=== PATIENT | female | born 1995 | race Caucasian/White ===

== ENCOUNTER 2018-09-17 16:36 | Inpatient (IN) ==
[2018-09-17] MEDS ORDERED: Naloxone 0.4 MG/ML INJ IVP PRN (16:43)
[2018-09-17] MEDS ORDERED: Ondansetron 4 MG/2 ML VIAL IVP PRN (17:20)
[2018-09-17] MEDS ORDERED: Ringers Solution, Lactated 1,000 ML ONE (18:03)
[2018-09-17] MEDS: cefOXitin 2,000 MG in 0.9 % Sodium Chloride Mini Bag 100 ML IVPB SCH (18:22)
--- NOTE | 2018-09-17 19:12 | OB/GYN History & Physical ---
Date of Encounter: 09/17/18 Time of Encounter: 19:01 Assessment and Plan (1) Pelvic inflammatory disease Current visit: Yes Status: Acute admitting for IV abx: cefoxitin 2g q6h and doxycycline 100mg po q12h until resolution of RUQ pain. Plan to transition to outpatient treatment once pain improved. (2) Smoking Current visit: Yes Status: Acute Encouraged cessation. offered nicotine supplement while inpatient (3) Tubo-ovarian abscess Current visit: No Status: Acute plan to recheck TOA when she follows up in the office after completing outpt abx course History of Present Illness Chief complaint: RUQ pain HPI: Ms. Nunez is a 23 year old G0 presented to [facility] ER today w/ 24 hrs of RUQ pain and one month of right pelvic pain. She was noted on CT scan today to have a hydrosalpinx/TOA on the right. She was stable for discharge from the ER for immediate follow up in the office this afternoon. She had a pelvic US that demonstrates a 4x3cm TOA on the right and an edematous left fallopian tube. She has ttp in RUQ. She reports subjective fevers but no documented fever. She has also noted 2 wks of foul smelling copious vaginal discharge. She is sexually active w/out condom use-3 yr monogamous relationship. She is also not using contraception. Her test is negative. She does not have an elevated WBC count or a fever here. She was given a dose of IV abx at the outside ER. She seems to think her pain is improving. She is not aware of her partner having an STD but would like full STD testing to be safe. She denies n/v. Past Med Surg Social Fam HX - Past Medical History Medical history: other Additional medical history: Restless leg syndome, Chonic Left knee pain Psychiatric history: depression - Past Surgical History Surgical History: no surgical history - Social History Smoking Status: Current every day smoker Smokeless Tobacco Status: No Alcohol use: occasionally Drug use: none Obstetrical History - Pregnancies : 0 Medications and Allergies Gabapentin [Neurontin] 600 mg PO TID 08/24/17 [History] Tramadol HCl [Ultram] 50 mg PO BID PRN 08/24/17 [History] Allergy/AdvReac Type Severity Reaction Status Date / Time pamabrom [From Midol] Allergy Rash Verified 07/20/18 08:17 aspirin AdvReac Gastrointestinal Verified 09/17/18 10:08 Upset ibuprofen AdvReac Nausea Verified 07/20/18 08:17 naproxen [From Aleve] AdvReac Nausea Verified 07/20/18 08:17 NSAIDS (Non-Steroidal AdvReac Gastrointestinal Verified 07/20/18 08:17 Anti-Inflamma Upset Review of System OB - Constitutional Constitutional ROS IM: as per HPI - Gastrointestinal Gastrointestinal: as per HPI, abdominal pain (RUQ), no constipation, no nausea, no vomiting - Genitourinary Genitourinary: as per HPI (reg menses, LMP 08/31/18), difficulty conceiving, dyspareunia Exam - Vital Signs Vital signs: Initial Vital Signs Resp 18 09/17/18 17:19 - Constitutional Constitutional: well developed, well nourished, no acute distress - Lungs Respiratory exam: CTAB - Cardiovascular Cardiovascular exam: RRR - Abdomen Abdomen: Present: bowel sounds normal. Absent: guarding noted (ttp in RUQ, no ttp in the lower abd) - Vulva Vulva: bilateral: normal - Vagina Vagina: Present: normal moisture, discharge - Cervix Cervix: Present: discharge (no CMT) - Uterus Uterus exam: Absent: tender - Adnexa Adnexa: bilateral: normal (nontender, do not appreciate a mass) Results All other labs normal. - VTE Reasons for not Prescribing Prophylaxis: Treatment not Indicated - Low risk for VTE
[2018-09-17] MEDS ORDERED: traMADol 50 MG TABLET PO PRN (20:10)
[2018-09-17] MEDS ORDERED: Gabapentin 300 MG CAPSULE PO PRN (20:10)
[2018-09-17] MEDS ORDERED: Nicotine 2 MG GUM BC PRN (21:16)
[2018-09-17] MEDS: Gabapentin 300 MG CAPSULE PO SCH (21:41)
[2018-09-17] MEDS: traMADol 50 MG TABLET PO PRN (21:41)
[2018-09-17] MEDS: Doxycycline 100 MG CAPSULE PO SCH (21:42)
[2018-09-18] MEDS: cefOXitin 2,000 MG in 0.9 % Sodium Chloride Mini Bag 100 ML IVPB SCH ×5 (00:16→18:33)
[2018-09-18] MEDS: traMADol 50 MG TABLET PO PRN ×4 (05:43→20:11)
--- NOTE | 2018-09-18 06:52 | OB/GYN Progress Note ---
Date of Encounter: 09/18/18 Time of Encounter: 06:50 - Assessment and Plan (1) Pelvic inflammatory disease Current Visit: Yes Status: Acute Cont cefoxitin 2g q6h and doxycycline 100mg po q12hr. Adding Flagyl 500mg IV BID until improvement in pain. Pos Chlamydia culture. Vaginosis panel pos for Gardnerella. Pt notified and plans to notify partner. Full STD panel pending. Repeating CBC. Starting IVF 80cc/hr. Currently on KVO rate. Plan to transition to outpatient treatment once pain improved. (2) Smoking Current Visit: Yes Status: Acute Encouraged cessation. offered nicotine supplement while inpatient. Pt declines patch but will use gum (3) Tubo-ovarian abscess Current Visit: No Status: Acute plan to recheck TOA when she follows up in the office after completing outpt abx course. Concerned RUQ pain is evolving Geronimo Wilfred Marcin syndrome. Subjective - Subjective Principal diagnosis: PID/TOA Interval history: 23yo G0 HD#2 inpt management of PID/TOA reports RUQ is more intense this morning. Still w/ subjective fevers, no documented fever. No n/v. She wants to go out to smoke. Patient reports: appetite normal Objective - Vital Signs Latest vital signs: Vital Signs Temp Pulse Resp BP Pulse Ox 09/18/18 05:45 98.1 F 97 16 106/67 96 09/18/18 00:20 98.9 F 112 16 110/67 96 09/17/18 19:59 98.6 F 108 14 111/71 97 09/17/18 17:37 98.6 F 109 16 117/76 09/17/18 17:19 18 Intake and Output 09/17/18 09/17/18 09/18/18 15:59 23:59 07:59 Intake Total 100 / 100 100 / 100 Output Total 300 / 300 Balance 100 / 100 -200 / -200 Intake: IV Fluids 100 / 100 100 / 100 Mefoxin 2,000 MG In 0.9 % 100 / 100 100 / 100 Sodium Chloride (Mini-Bag +) 100 ML @ 200 mls/hr IVPB Q6HR ALAN Rx#:[id number] Output: Urine 300 / 300 Other: # Urine Diapers 3 - I&O's I&O's: Intake & Output 09/15/18 09/16/18 09/17/1819 23:59 23:59 23:59 23:59 Intake Total 100 / 100 100 / 100 Output Total 300 / 300 Balance 100 / 100 -200 / -200 - Exam Lungs: bilateral: normal Chest: Normal S1, Normal S2 Extremities: Present: normal Abdomen: Present: soft, tenderness (in the RUQ and lower abdomen) - Labs Labs: Pos Chlamydia, Pos Gardnerella
[2018-09-18 07:04] LABS: Basophils # 0.1 K/mcL (0.0-0.2); Basophils % 0.6 %; Eosinophils # 0.2 K/mcL (0.0-0.6); Hematocrit 36.7 % (35.3-44.9); Hemoglobin 11.8 g/dL (11.5-15.4); Immature Granulocytes % 0.2 % (0-4); Lymphocytes # 5.1 K/mcL (0.6-4.6); Lymphocytes % 60.3 %; Mean Corpuscular HGB Conc 32.2 g/dL (31.6-35.5); Mean Corpuscular Hemoglobin 29.4 pg (28.0-33.3); Mean Corpuscular Volume 91.5 fL (83.0-100.0); Mean Platelet Volume 9.3 fL (9.4-12.4); Monocytes # 0.5 K/mcL (0.0-1.3); Monocytes % 6.4 %; Neutrophils # 2.6 K/mcL (1.6-8.9); Platelet Count 341 K/mcL (140-400); Red Blood Count 4.01 M/mcL (3.82-4.97); Red Cell Distribution Width 14.7 % (11.5-14.5); Segmented Neutrophils % 30.5 %; White Blood Count 8.5 K/mcL (4.3-11.1)
[2018-09-18 07:22] LABS: Platelet Estimate Normal (Normal); Reactive Lymphocytes Present (Not Present)
[2018-09-18] MEDS: Ringers Solution, Lactated 1,000 ML IVC SCH (08:37)
[2018-09-18] MEDS: Doxycycline 100 MG CAPSULE PO SCH ×2 (08:37→20:11)
[2018-09-18] MEDS: MetroNIDAZOLE 500 MG/100 ML 500 MG/100 ML BAG IVPB SCH ×2 (08:38→16:34)
[2018-09-18 12:32] LABS: HIV-1&2 Antibody & p24 Ag Nonreactive (Nonreactive); Hepatitis C Virus Antibody Nonreactive (Nonreactive)
[2018-09-18] MEDS: Gabapentin 300 MG CAPSULE PO SCH (20:11)
[2018-09-19] MEDS: cefOXitin 2,000 MG in 0.9 % Sodium Chloride Mini Bag 100 ML IVPB SCH ×3 (00:10→11:51)
[2018-09-19] MEDS: Ringers Solution, Lactated 1,000 ML IVC SCH (00:12)
[2018-09-19] MEDS: MetroNIDAZOLE 500 MG/100 ML 500 MG/100 ML BAG IVPB SCH ×2 (00:53→08:19)
[2018-09-19] MEDS: Doxycycline 100 MG CAPSULE PO SCH ×2 (08:18→20:21)
[2018-09-19] MEDS: traMADol 50 MG TABLET PO PRN ×3 (08:19→20:27)
--- NOTE | 2018-09-19 10:22 | OB/GYN Progress Note ---
Date of Encounter: 09/19/18 Time of Encounter: 10:14 - Assessment and Plan (1) Tubo-ovarian abscess Current Visit: Yes Status: Acute Continue by mouth doxycycline 100 mg twice a day. Transition metronidazole 500 mg every 8 hours IV to PO Metronidazole 250 mg every 8 Hours. Transition cefoxitin 2000 mg every 6 hours IV to PO Cephalexin 250 mg every 8 hours. Continue vital sign checks, monitoring for any signs of fever. Repeat CBC in AM, monitoring for any elevations in white blood cell count. (2) Pelvic inflammatory disease Current Visit: Yes Status: Acute Continue antibiotics as stated in plan for TOA. Repeat abdominal exam in the morning. (3) Diarrhea Current Visit: Yes Status: Acute Check a Hemoccult to r/o GI bleed Qualifiers: Diarrhea type: unspecified type Qualified Code(s): R19.7 - Diarrhea, unspecified Subjective - Subjective Principal diagnosis: Tubo-ovarial abscess Interval history: Patient reports right upper quadrant pain has increased since yesterday, currently rating the pain a 7 out of 10. She also reports nausea with decreased appetite, stating she was only able to eat a few bites of her breakfast this morning, as well as 1 episode of vomiting overnight. She also reports subjective fevers, stating she feels hot. In addition, she reports diarrhea with dark stools, however denies black stools, bloody stools, changes in urinary frequency, urgency, pain with urination. She reports ongoing vaginal discharge that is unchanged. Of note, the patient reports that the diarrhea began and sometimes pain. It has been watery throughout. Was not present yesterday, but returned today and was dark today. Has not been dark before today. Patient reports: voiding normally, appetite poor (Patient reports decreased appetite over the last day, reporting she was only able to take 2 or 3 bites of her breakfast this morning secondary to nausea), nauseated (Patient reports one episode of vomiting overnight) Objective - Vital Signs Latest vital signs: Vital Signs Temp Pulse Pulse Resp BP Pulse Ox 09/19/18 09:10 98 F 71 18 117/70 97 09/19/18 08:25 98 F 83 16 102/67 95 09/19/18 06:14 98.1 F 100/64 96 09/19/18 05:45 86 14 09/19/18 00:00 98.6 F 93 16 100/64 95 09/18/18 19:25 98.2 F 120 14 110/73 95 Intake and Output 09/18/18 09/19/18 09/19/18 23:59 07:59 15:59 Intake Total 200 / 500 1200 / 1200 Output Total 200 / 900 300 / 300 Balance 0 / -400 900 / 900 Intake: IV Fluids 200 / 500 1200 / 1200 Lactated Ringers 1,000 ML @ 80 1000 / 1000 mls/hr IVC .[id number] ALAN Rx#: [id number] Flagyl Premix 500 MG/100 ML 500 100 / 200 100 / 100 mg In 100 ml @ 100 mls/hr IVPB Q8HR ALAN Rx#:[id number] Mefoxin 2,000 MG In 0.9 % 100 / 200 100 / 100 Sodium Chloride (Mini-Bag +) 100 ML @ 200 mls/hr IVPB Q6HR ALAN Rx#:[id number] Output: Urine 200 / 900 300 / 300 Other: Weight 55.6 kg Patient Weight 09/19/18 23:59 Weight 55.6 kg - I&O's I&O's: Intake & Output 09/16/18 09/17/18 09/18/18 09/19/18 23:59 23:59 23:59 23:59 Intake Total 100 / 100 500 / 500 1200 / 1200 Output Total 900 / 900 300 / 300 Balance 100 / 100 -400 / -400 900 / 900 Weight 55.7 kg 55.6 kg - Exam Lungs: bilateral: normal Chest: Normal S1, Normal S2 Extremities: Present: normal. Absent: tenderness, edema Abdomen: Present: normal appearance, tenderness (Right upper quadrant, with v oluntary guarding.), other (Voluntary guarding on exam) Comments: Of note, heart rate on exam was 100 bpm. - Labs Labs: Abnormal lab results RDW 14.7 % (11.5-14.5) H 09/18/18 06:33 MPV 9.3 fL (9.4-12.4) L 09/18/18 06:33 Lymphocytes # 5.1 K/mcL (0.6-4.6) H 09/18/18 06:33 Reactive Lymphocytes Present (Not Present) A 09/18/18 06:33 Consult Discharge Plan - Plan Referrals: NONE,PCP [Primary Care Provider] -
[2018-09-19] MEDS: Acetaminophen 325 MG TABLET PO PRN ×2 (12:04→18:21)
--- NOTE | 2018-09-19 14:57 | OB/GYN Progress Note ---
Date of Encounter: 09/19/18 Time of Encounter: 14:47 - Assessment and Plan (1) Tubo-ovarian abscess Current Visit: Yes Status: Acute 23yo G0 female who was admitted to [employer] [facility] with concern for TOA, and likely PID, HD#3 1. TOA - patient admitted from office on 09/17 - [place] [facility] [place] from outside hospital performed; both confirm likely 4cm TOA (R) - IV cepphalexin, doxy, flagyl; transitioned to PO ABx today - OK to continue po pain regimen with PO anti-emetics - OK to ADAT with patient - no leukocytosis appreciated - normal labs otherwise 2. Concern for PID - patient diagnosed with +Chlamydia - given IV dose on HD#1 - patient aware of risks of infertiliy with undiagnosed +CT - partner is to be treated for infection as well, both must remain abstinent from each other for at least 2 weeks DISPO: Transition to PO ABx today, pending patient status, will be OK to DC to home on HD#4 (tomorrow). MD SANAZ Subjective - Subjective Principal diagnosis: TOA/PID Interval history: 23yo G0 female, HD#3, admitted from the office for IV ABx with concern for TOA v. PID. Patient has been on triple IV ABx therapy since her admission without any objective fever, or WBC. She had issues with nausea and pain on HD#1, and again PM of HD#2 the patient had nausea. She was continued on IV hydration with IV ABx, and was given anti-emetics for vomiting. The patient has been able to tolerate PO since this morning, with vomiting and nausea. She is still taking pain medication which seems to be helping. Since the onset of her pain/discomfort also had an additional side effect of diarrhea. Reports increased dark brown/black stool. Denies odor. No longer with diarrhea, only ~8hr of diarrhea overnight. The patient was doing well this afternoon, still with discomfort along the RLQ and tender to palpation along the RUQ as well. Since the patient is tolerating PO solids/liquids this AM, OK to transition to PO this AM. Patient reports: appetite normal, voiding normally, pain well controlled, ambulating normally, nauseated Objective - Vital Signs Latest vital signs: Vital Signs Temp Pulse Pulse Resp BP Pulse Ox 09/19/18 11:50 98.3 F 88 16 100/65 09/19/18 09:10 98 F 71 18 117/70 97 09/19/18 08:25 98 F 83 16 102/67 95 09/19/18 06:14 98.1 F 100/64 96 09/19/18 05:45 86 14 09/19/18 00:00 98.6 F 93 16 100/64 95 09/18/18 19:25 98.2 F 120 14 110/73 95 Intake and Output 09/18/18 09/19/18 09/19/18 23:59 07:59 15:59 Intake Total 200 / 500 1300 / 2000 700 / 2000 Output Total 200 / 900 300 / 600 300 / 600 Balance 0 / -400 1000 / 1400 400 / 1400 Intake: IV Fluids 200 / 500 1300 / 1300 Lactated Ringers 1,000 ML @ 80 1000 / 1000 mls/hr IVC .[id number] ALAN Rx#: [id number] Flagyl Premix 500 MG/100 ML 500 100 / 200 100 / 100 mg In 100 ml @ 100 mls/hr IVPB Q8HR ALAN Rx#:[id number] Mefoxin 2,000 MG In 0.9 % 100 / 200 200 / 200 Sodium Chloride (Mini-Bag +) 100 ML @ 200 mls/hr IVPB Q6HR ALAN Rx#:[id number] Oral 700 / 700 Output: Urine 200 / 900 300 / 600 300 / 600 Other: Meal Breakfast Percent of Meal Consumed 25% Weight 55.6 kg Patient Weight 09/19/18 23:59 Weight 55.6 kg - I&O's I&O's: Intake & Output 09/16/18 09/17/18 09/18/18 09/19/18 23:59 23:59 23:59 23:59 Intake Total 100 / 100 500 / 500 2000 / 2000 Output Total 900 / 900 600 / 600 Balance 100 / 100 -400 / -400 1400 / 1400 Weight 55.7 kg 55.6 kg - Exam Extremities: Present: normal Abdomen: Present: soft, tenderness (RUQ pain) - Labs Labs: Abnormal lab results RDW 14.7 % (11.5-14.5) H 09/18/18 06:33 MPV 9.3 fL (9.4-12.4) L 09/18/18 06:33 Lymphocytes # 5.1 K/mcL (0.6-4.6) H 09/18/18 06:33 Reactive Lymphocytes Present (Not Present) A 09/18/18 06:33 Consult Discharge Plan - Plan Referrals: NONE,PCP [Primary Care Provider] -
[2018-09-19] MEDS: Gabapentin 300 MG CAPSULE PO SCH (20:21)
[2018-09-19] MEDS: Ondansetron ODT 4 MG TAB.RAPDIS SL PRN (20:31)
[2018-09-19] MEDS: metroNIDAZOLE 250 MG TABLET PO SCH (21:32)
[2018-09-19] MEDS: cephALEXin 250 MG CAPSULE PO SCH (21:32)
[2018-09-20] MEDS: traMADol 50 MG TABLET PO PRN ×4 (00:09→21:18)
[2018-09-20] MEDS: Acetaminophen 325 MG TABLET PO PRN (04:35)
[2018-09-20] MEDS: Doxycycline 100 MG CAPSULE PO SCH ×2 (08:33→21:15)
--- NOTE | 2018-09-20 09:59 | OB/GYN Progress Note ---
Date of Encounter: 09/20/18 Time of Encounter: 09:53 - Assessment and Plan (1) Tubo-ovarian abscess Current Visit: Yes Status: Acute 23-year-old female on hospital day #4 admitted for tubo-ovarian abscess and likely pelvic inflammatory disease. - TVUS performed [facility] [place] (office), CT from outside hospital performed; both confirm likely 4cm TOA (R) Continue by mouth doxycycline 100 mg twice a day. Continue PO Metronidazole 250 mg every 8 Hours. Continue PO Cephalexin 250 mg every 8 hours. Continue vital sign checks, monitoring for any signs of fever. Repeat CBC in AM, monitoring for any elevations in white blood cell count. Will add IV Toradol for continuing pain management (2) Pelvic inflammatory disease Current Visit: Yes Status: Acute Continue antibiotics as stated in plan for TOA. Possible discharge later today, pending Dr. Hilario's assessment. (3) Diarrhea Current Visit: Yes Status: Acute Check a Hemoccult to r/o GI bleed Qualifiers: Diarrhea type: unspecified type Qualified Code(s): R19.7 - Diarrhea, unspecified Subjective - Subjective Principal diagnosis: TOA Interval history: Patient reports no significant change from yesterday. She reports ongoing right upper quadrant pain, with slight worsening of suprapubic pain this morning. She reports ongoing vaginal discharge that is at times clear and at times white, denies any foul odor, denies any increase or decrease in quantity of the discharge. Still reports no nausea or vomiting, black or bloody stools, difficulty with urination, numbness or tingling, chest pain, shortness of breath. She does report some pain with deep breaths secondary to her abdominal pain. Denies any cough, hemoptysis. Denies fevers or chills. Patient reports: appetite normal, voiding normally, ambulating normally Objective - Vital Signs Latest vital signs: Vital Signs Temp Pulse Resp BP Pulse Ox 09/20/18 08:07 97.8 F 86 16 100/62 09/20/18 04:35 98.1 F 97 14 96/62 96 09/20/18 00:11 97.9 F 100 16 116/77 95 09/19/18 20:30 98.1 F 78 14 124/86 97 09/19/18 15:51 98.5 F 85 16 110/69 09/19/18 11:50 98.3 F 88 16 100/65 Intake and Output 09/19/18 09/20/18 09/20/18 23:59 07:59 15:59 Intake Total 200 / 2200 200 / 200 Output Total 500 / 500 Balance 200 / 1600 -500 / -300 200 / -300 Intake: Oral 200 / 900 200 / 200 Output: Urine 500 / 500 Other: Meal Dinner Percent of Meal Consumed 10% # Voids 4 Weight 53.7 kg Patient Weight 09/20/18 23:59 Weight 53.7 kg - I&O's I&O's: Intake & Output 09/17/18 09/18/18 09/19/18 09/20/18 23:59 23:59 23:59 23:59 Intake Total 100 / 100 500 / 500 2200 / 2200 200 / 200 Output Total 900 / 900 600 / 600 500 / 500 Balance 100 / 100 -400 / -400 1600 / 1600 -300 / -300 Weight 55.7 kg 55.6 kg 53.7 kg - Exam Lungs: bilateral: normal Chest: Normal S1, Normal S2 Extremities: Present: normal. Absent: edema Abdomen: Present: normal appearance, tenderness (Right upper quadrant and suprapubic). Absent: rigidity, distention - Labs Labs: Abnormal lab results RDW 14.7 % (11.5-14.5) H 09/18/18 06:33 MPV 9.3 fL (9.4-12.4) L 09/18/18 06:33 Lymphocytes # 5.1 K/mcL (0.6-4.6) H 09/18/18 06:33 Reactive Lymphocytes Present (Not Present) A 09/18/18 06:33 Consult Discharge Plan - Plan Referrals: NONE,PCP [Primary Care Provider] -
[2018-09-20] MEDS ORDERED: Ketorolac 15 MG/ML VIAL IVP PRN (10:24)
[2018-09-20] MEDS ORDERED: Ketorolac 30 MG/ML VIAL IVP ONE (10:24)
[2018-09-20] MEDS: cephALEXin 250 MG CAPSULE PO SCH ×3 (10:53→21:15)
[2018-09-20] MEDS: metroNIDAZOLE 250 MG TABLET PO SCH ×3 (10:53→21:16)
[2018-09-20] MEDS: Gabapentin 300 MG CAPSULE PO SCH (21:15)
[2018-09-21] MEDS: Ondansetron ODT 4 MG TAB.RAPDIS SL PRN (00:14)
[2018-09-21] MEDS: traMADol 50 MG TABLET PO PRN ×2 (00:14→04:10)
--- NOTE | 2018-09-21 07:12 | Discharge Summary ---
Date of Encounter: 09/21/18 Time of Encounter: 07:12 - Discharge Diagnosis (1) Tubo-ovarian abscess Priority: Primary Status: Acute Comments: Pt stable, still with pain but no fever and normal WBC. I kept an additional day yesterday b/c of significant pain, however pt remains AF and pain stable. IV pain meds not really helping more than oral. Will D/c home on PO ATB's and limited narcotics. - Discharge Medications Prescriptions: New Doxycycline 100 mg PO BID #20 capsule metroNIDAZOLE [Flagyl] 500 mg PO BID #20 tablet cephALEXin [Keflex] 500 mg PO BID #20 capsule Ibuprofen [Motrin] 600 mg PO Q6HR PRN #40 tab PRN Reason: abdominal pain HYDROcodone/Acet 5/325 mg [[place] 5-325 mg] 1 tab PO Q4H PRN 7 Days #25 tab PRN Reason: tuboovarian abcess No Action Tramadol HCl [Ultram] 50 mg PO BID PRN PRN Reason: Pain Gabapentin [Neurontin] 600 mg PO TID Home Medications: Gabapentin [Neurontin] 600 mg PO TID 08/24/17 [History] Tramadol HCl [Ultram] 50 mg PO BID PRN 08/24/17 [History] Doxycycline 100 mg PO BID #20 capsule 09/21/18 [Rx] HYDROcodone/Acet 5/325 mg [[place] 5-325 mg] 1 tab PO Q4H PRN 7 Days #25 tab 09/21/18 [Rx] Ibuprofen [Motrin] 600 mg PO Q6HR PRN #40 tab 09/21/18 [Rx] cephALEXin [Keflex] 500 mg PO BID #20 capsule 09/21/18 [Rx] metroNIDAZOLE [Flagyl] 500 mg PO BID #20 tablet 09/21/18 [Rx] Allergies/Adverse Reactions: Allergy/AdvReac Type Severity Reaction Status Date / Time pamabrom [From Midol] Allergy Rash Verified 07/20/18 08:17 aspirin AdvReac Gastrointestinal Verified 09/17/18 10:08 Upset ibuprofen AdvReac Nausea Verified 07/20/18 08:17 naproxen [From Aleve] AdvReac Nausea Verified 07/20/18 08:17 NSAIDS (Non-Steroidal AdvReac Gastrointestinal Verified 07/20/18 08:17 Anti-Inflamma Upset Data Procedures and tests throughout hospitalization: Laboratory Tests 09/18/18 09/18/18 06:33 06:33 WBC 8.5 RBC 4.01 Hgb 11.8 D Hct 36.7 MCV 91.5 MCH 29.4 MCHC 32.2 RDW 14.7 H Plt Count 341 MPV 9.3 L Immature Gran % 0.2 Seg Neutrophils % 30.5 Lymphocytes % 60.3 Monocytes % 6.4 Eosinophils % 2.0 Basophils % 0.6 Neutrophils # 2.6 Lymphocytes # 5.1 H Monocytes # 0.5 Eosinophils # 0.2 Basophils # 0.1 Reactive Lymphocytes Present A Platelet Estimate Normal Hepatitis C Ab Screen Nonreactive HIV Ag/Ab Combo Qual Nonreactive - Impressions Doing ok overall, still c/o pain in RLQ but no n/v. Ambulating and taking regular diet. No abnormal discharge. Date of admission: 09/17/18 17:04 Primary care physician: PCP NONE - Patient Status Disposition: Home, Self-Care Condition: Good Overall status at discharge: patient is progressing back to baseline - Discharge Instructions Follow Up With: Mckayla Osorio [Partnered Physician] - Additional Instructions: f/u 2 weeks with pelvic u/s - Diet and Activity Activity: increase activity as tolerated Diet: advance to your usual diet Hospital Course [employer] Time Attestation: Total time spent providing and/or coordinating discharge services: Exam - Constitutional Vitals: Temp Pulse Resp BP Pulse Ox 97.8 F 91 15 100/60 95 09/21/18 04:12 09/21/18 04:12 09/21/18 04:12 09/21/18 04:12 09/21/18 04:12 General appearance IM: A&O X 3 - Respiratory Respiratory exam: Present: CTAB - Cardiovascular Cardiovascular exam IM: Present: RRR - GI/Abdominal GI/Abdominal exam IM: normal bowel sounds, tenderness, no peritoneal signs - Extremities Exam Extremities exam IM: Present: full ROM - VTE Reasons for not Prescribing Prophylaxis: Treatment not Indicated - Low risk for VTE
[2018-09-21 08:39] VITALS: BP 104/63
== END 2018-09-21 09:20 | disposition home or self-care (01) | DRG 759 ==
LOC: 1NENUOBS
PROVIDERS: ADMIT Obstetrics & Gynecology; ATTEND Obstetrics & Gynecology

== ENCOUNTER 2018-10-05 12:17 | Observation (INO) ==
[2018-10-05] MEDS ORDERED: 0.9 % Sodium Chloride 1,000 ML IVC ONE ×2 (13:00→13:43)
[2018-10-05] MEDS ORDERED: Isovue-370 500 ML BOTTLE IVP ONE (13:02)
[2018-10-05 13:38] LABS: Basophils # 0.1 K/mcL (0.0-0.2); Basophils % 0.6 %; Eosinophils # 0.1 K/mcL (0.0-0.6); Hematocrit 49.4 % (35.3-44.9); Immature Granulocytes % 0.2 % (0-4); Lymphocytes # 2.5 K/mcL (0.6-4.6); Lymphocytes % 30.6 %; Mean Corpuscular HGB Conc 32.4 g/dL (31.6-35.5); Mean Corpuscular Hemoglobin 29.7 pg (28.0-33.3); Mean Corpuscular Volume 91.8 fL (83.0-100.0); Monocytes # 0.4 K/mcL (0.0-1.3); Monocytes % 4.4 %; Neutrophils # 5.1 K/mcL (1.6-8.9); Platelet Count 363 K/mcL (140-400); Red Blood Count 5.38 M/mcL (3.82-4.97); Red Cell Distribution Width 15.1 % (11.5-14.5); Segmented Neutrophils % 63.2 %; White Blood Count 8.1 K/mcL (4.3-11.1)
[2018-10-05] MEDS ORDERED: Ondansetron 4 MG/2 ML VIAL IVP ONE (13:43)
[2018-10-05] MEDS ORDERED: *HR* FentaNYL (PF) 100 MCG/2 ML VIAL IVP ONE (13:43)
[2018-10-05 13:49] LABS: Alanine Aminotransferase 18 Units/L (7-52); Albumin 5.2 g/dL (3.5-5.7); Albumin/Globulin Ratio 1.6 (1.1-2.2); Alkaline Phosphatase 81 Units/L (34-104); Amylase 33 Units/L (29-103); Aspartate Amino Transferase 44 Units/L (13-39); BUN/Creatinine Ratio 7 (6-26); Bilirubin,Direct 0.1 mg/dL (0.0-0.2); Bilirubin,Indirect 0.4 mg/dL (0.0-1.2); Bilirubin,Total 0.5 mg/dL (0.3-1.0); Blood Urea Nitrogen 4 mg/dL (6-20); Calcium 10.6 mg/dL (8.6-10.3); Carbon Dioxide 23 mEq/L (23-29); Chloride 107 mEq/L (98-107); Globulin 3.3 g/dL (2.4-3.5); Glucose 107 mg/dL (70-105); Lipase 27 Units/L (11-82); Osmolality,Calculated 285 (280-300); Potassium 3.8 mEq/L (3.5-5.1); Sodium 139 mEq/L (136-145); Total Protein 8.5 g/dL (6.4-8.9); eGFR For African Americans > 60 (> 60); eGFR For Non-African Americans > 60 (> 60)
--- NOTE | 2018-10-05 13:51 | Emergency Department Note ---
Disposition Clinical Impression: Tubo-ovarian abscess, Pelvic inflammatory disease (PID) Disposition: Admitted As Inpatient Referrals: Cherry Estrada APN [Primary Care Provider] - Forms: ED Satisfaction Letter, Work/School Release Time of Disposition: 19:22 Abdominal Pain HPI - General Chief Complaint: ED Abdominal Pain Stated Complaint: "fluid in fallopian tube" Time Seen by Provider: 10/05/18 12:45 Source: patient Mode of arrival: ambulatory Limitations: no limitations Nursing Notes Reviewed: Yes Vital Signs Reviewed: Yes - History of Present Illness HPI Narrative: 23F with previous diagnosis of ovarian cyst and salpingitis 2 weeks ago at [facility] with treatment with IV abx presents to the emergency department with worsening abdominal pain. She states she found out that she had chlamydia when she first presented for abdominal pain and ultrasound demonstrated "fluid in her fallopian tubes." She has received treatment for the fluid in her fallopian tubes and the one side looks better than before treatment but the other side has been unchanged. She cannot member which side is which. She began feeling worse today as she felt sweaty and tired and felt like her heart was racing. She also has had some nausea and worsening lower abdominal pain. She denies vaginal discharge. She has not had a new sexual contacts and broke up with her long-term boyfriend after finding out that she had contracted chlamydia. Pain Scale: 7 - Related Data Home Medications Medication Instructions Recorded Confirmed Gabapentin [Neurontin] 600 mg PO TID 08/24/17 10/05/18 Tramadol HCl [Ultram] 50 mg PO TID 08/24/17 10/05/18 Previous Rx's Medication Instructions Recorded Doxycycline 100 mg PO BID #20 capsule 09/21/18 cephALEXin [Keflex] 500 mg PO BID #20 capsule 09/21/18 metroNIDAZOLE [Flagyl] 500 mg PO BID #20 tablet 09/21/18 Allergies Allergy/AdvReac Type Severity Reaction Status Date / Time pamabrom [From Midol] Allergy Rash Verified 07/20/18 08:17 aspirin AdvReac Gastrointestinal Verified 09/17/18 10:08 Upset ibuprofen AdvReac Nausea Verified 07/20/18 08:17 naproxen [From Aleve] AdvReac Nausea Verified 07/20/18 08:17 NSAIDS (Non-Steroidal AdvReac Gastrointestinal Verified 07/20/18 08:17 Anti-Inflamma Upset All systems ED: reviewed and negative except as stated. Review of Systems: As Per HPI Constitutional: Reports: fever, chills, weakness Cardiovascular: Denies: chest pain, palpitations, dyspnea on exertion Respiratory: Denies: cough, dyspnea, wheezes Gastrointestinal: Reports: abdominal pain, nausea. 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 Absent: tenderness - Chest Chest inspection: Present: normal inspection. Absent: tenderness - Respiratory Respiratory exam: Present: normal lung sounds bilaterally. Absent: wheezes - Cardiovascular Cardiovascular exam: Present: regular rate, normal rhythm - Abdominal Exam Abdominal exam: Present: soft, tenderness. 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 Absent: right adnexal mass, left adnexal mass - Extremities Exam Extremities exam: Present: normal inspection. Absent: tenderness, pedal edema - Neurological Exam Neurological exam: Present: alert, oriented X3 - Psychiatric Psychiatric exam: Present: normal affect, normal mood - Skin Skin exam: Present: warm, intact, diaphoresis Course Vital Signs Temperature 98.0 F 10/05/18 12:18 Pulse Rate 93 10/05/18 12:18 Respiratory Rate 14 10/05/18 12:18 Blood Pressure 111/68 10/05/18 12:18 O2 Sat by Pulse Oximetry 100 10/05/18 12:18 Temperature 98.5 F 10/05/18 17:22 Pulse Rate 117 10/05/18 18:55 Respiratory Rate 18 10/05/18 18:55 Blood Pressure 116/67 10/05/18 18:55 O2 Sat by Pulse Oximetry 100 10/05/18 18:55 Oxygen Delivery Oxygen Delivery Room Air Abdominal Pain - MDM Narrative Medical decision making narrative: Patient with recent diagnosis and treatment of tubo-ovarian abscess presents emergency Department with worsening abdominal pain. She is flushed and diaphoretic on exam as well as tachycardic but does not have a notable fever. W e will pursue a septic workup on her and obtain CT scan of her abdomen and pelvis along with a transvaginal ultrasound for further evaluation. 1450 - pts labwork demonstrates an elevated lactic of 2.6 without any other acute abnormalities. CT scan shows ovarian cyst with possible PID. Awaiting pelv ic ultrasound now. 1829 - patient's pelvic x-ray shows complex cysts in bilateral ovaries and possi ble tubo-ovarian abscess. [facility] has been paged at this time. 1914 - Spoke with Dr. Peterson, OBGYN who states this may be a case of tubo-ovarian abscess but is requesting more information and asks for a pelvic exam. He states if the patient has cervical motion tenderness upon pelvic exam that we ca n admit the [facility] service and start the patient on Zosyn. Pelvic exam done demonstrates mild cervical motion tenderness but the patient does have extreme tenderness upon palpation of the right fallopian tube, as well as some mild tenderness of palpation of the left fallopian tube. No cysts were palpable on pelvic exam. Patient was started on Zosyn and admitted to [facility]. - Medical Records Medical records reviewed: Yes I reviewed the patient's medical records. - Lab Data Lab results reviewed: Yes I reviewed the patient's lab results. Result diagrams: 10/05/18 13:15 10/05/18 13:15 Lab Results 10/05/18 10/05/18 10/05/18 Range/Units 13:15 13:15 13:15 WBC 8.1 (4.3-11.1) K/mcL RBC 5.38 H (3.82-4.97) M/mcL Hgb 16.0 H (11.5-15.4) g/dL Hct 49.4 H (35.3-44.9) % MCV 91.8 (83.0-100.0) fL MCH 29.7 (28.0-33.3) pg MCHC 32.4 (31.6-35.5) g/dL RDW 15.1 H (11.5-14.5) % Plt Count 363 (140-400) K/mcL MPV 10.0 (9.4-12.4) fL Immature Gran % 0.2 (0-4) % Seg Neutrophils % 63.2 % Lymphocytes % 30.6 % Monocytes % 4.4 % Eosinophils % 1.0 % Basophils % 0.6 % Neutrophils # 5.1 (1.6-8.9) K/mcL Lymphocytes # 2.5 (0.6-4.6) K/mcL Monocytes # 0.4 (0.0-1.3) K/mcL Eosinophils # 0.1 (0.0-0.6) K/mcL Basophils # 0.1 (0.0-0.2) K/mcL Sodium 139 (136-145) mEq/L Potassium 3.8 (3.5-5.1) mEq/L Chloride 107 (98-107) mEq/L Carbon Dioxide 23 (23-29) mEq/L BUN 4 L (6-20) mg/dL Creatinine 0.60 (0.60-1.20) mg/dL Est GFR ( Amer) > 60 (> 60) Est GFR (Non-Af Amer) > 60 (> 60) BUN/Creatinine Ratio 7 (6-26) Glucose 107 H (70-105) mg/dL Calculated Osmolality 285 (280-300) Lactic Acid 2.6 H (0.5-2.2) mmol/L Calcium 10.6 H (8.6-10.3) mg/dL Total Bilirubin 0.5 (0.3-1.0) mg/dL Direct Bilirubin 0.1 (0.0-0.2) mg/dL Indirect Bilirubin 0.4 (0.0-1.2) mg/dL AST 44 H (13-39) Units/L ALT 18 (7-52) Units/L Alkaline Phosphatase 81 (34-104) Units/L Serum Total Protein 8.5 (6.4-8.9) g/dL Albumin 5.2 (3.5-5.7) g/dL Globulin 3.3 (2.4-3.5) g/dL Albumin/Globulin Ratio 1.6 (1.1-2.2) Amylase 33 (29-103) Units/L Lipase 27 (11-82) Units/L Urine Color (Yellow) Urine Clarity (Clear) Urine pH (5.0-8.0) pH Units Ur Specific [place] (1.010-1.025) Urine Protein (Neg-Trace) mg/dL Urine Glucose (UA) (Normal) mg/dL Urine Ketones (Negative) mg/dL Urine Blood (Negative) Urine Nitrite (Negative) Urine Bilirubin (Negative) Urine Urobilinogen (Normal) mg/dL Ur Leukocyte Esterase (Negative) Ur Squamous Epith Cells (None-Few) per lpf Ur Renal Epithelial Cell (None-Few) per hpf Amorphous Sediment (Few) Urine Bacteria (None-Few) per hpf Hyaline Casts (None-Few) per lpf Urine Mucus (Few) Ur Culture Indicated? (NO) Urine Test (Negative) 10/05/18 10/05/18 10/05/18 Range/Units 13:44 13:50 17:05 WBC (4.3-11.1) K/mcL RBC (3.82-4.97) M/mcL Hgb (11.5-15.4) g/dL Hct (35.3-44.9) % MCV (83.0-100.0) fL MCH (28.0-33.3) pg MCHC (31.6-35.5) g/dL RDW (11.5-14.5) % Plt Count (140-400) K/mcL MPV (9.4-12.4) fL Immature Gran % (0-4) % Seg Neutrophils % % Lymphocytes % % Monocytes % % Eosinophils % % Basophils % % Neutrophils # (1.6-8.9) K/mcL Lymphocytes # (0.6-4.6) K/mcL Monocytes # (0.0-1.3) K/mcL Eosinophils # (0.0-0.6) K/mcL Basophils # (0.0-0.2) K/mcL Sodium (136-145) mEq/L Potassium (3.5-5.1) mEq/L Chloride (98-107) mEq/L Carbon Dioxide (23-29) mEq/L BUN (6-20) mg/dL Creatinine (0.60-1.20) mg/dL Est GFR ( Amer) (> 60) Est GFR (Non-Af Amer) (> 60) BUN/Creatinine Ratio (6-26) Glucose (70-105) mg/dL Calculated Osmolality (280-300) Lactic Acid 1.0 (0.5-2.2) mmol/L Calcium (8.6-10.3) mg/dL Total Bilirubin (0.3-1.0) mg/dL Direct Bilirubin (0.0-0.2) mg/dL Indirect Bilirubin (0.0-1.2) mg/dL AST (13-39) Units/L ALT (7-52) Units/L Alkaline Phosphatase (34-104) Units/L Serum Total Protein (6.4-8.9) g/dL Albumin (3.5-5.7) g/dL Globulin (2.4-3.5) g/dL Albumin/Globulin Ratio (1.1-2.2) Amylase (29-103) Units/L Lipase (11-82) Units/L Urine Color Yellow (Yellow) Urine Clarity Hazy A (Clear) Urine pH 7.5 (5.0-8.0) pH Units Ur Specific [place] 1.013 (1.010-1.025) Urine Protein Negative (Neg-Trace) mg/dL Urine Glucose (UA) Normal (Normal) mg/dL Urine Ketones Negative (Negative) mg/dL Urine Blood Negative (Negative) Urine Nitrite Negative (Negative) Urine Bilirubin Negative (Negative) Urine Urobilinogen Normal (Normal) mg/dL Ur Leukocyte Esterase Negative (Negative) Ur Squamous Epith Cells Many H (None-Few) per lpf Ur Renal Epithelial Cell Few (None-Few) per hpf Amorphous Sediment Moderate H (Few) Urine Bacteria None Seen (None-Few) per hpf Hyaline Casts Few (None-Few) per lpf Urine Mucus Few (Few) Ur Culture Indicated? NO (NO) Urine Test Negative (Negative) - Radiology Data Radiology results reviewed: Yes I reviewed the patient's radiology results. Attestation Statement - Attestation Attestation: Patient was seen with resident physician. I reviewed the history, physical, assessment and plan, and agree with the findings. I also personally evaluated this patient and had [id number] time with this patient. 23-year-old female presents emergency department with lower abdominal discomfort and upper abdominal discomfort. Patient is a history of same. Patient was seen and admitted the last week for inflammation of her fallopian tubes. She was sent home on antibiotics. She was reevaluated Saturday and apparently the right one was no better the left one was slightly improved. However she said that the pain is gotten worse today now radiates up anterior to the right lower quadrant she is also had some intermittent fevers and some diaphoresis. She has usual vaginal discharge. She denies nausea vomiting or diarrhea. Review systems as above remainder negative. Physical exam vital signs are stable except for mild tachycardia. ENT is unremarkable. Heart regular rate. Lungs clear. Abdomen abdomen is soft is minimal tenderness the right upper and right lower quadrants. There is no guarding rigidity. Neurologically intact. Skin no rashes. Psych normal. GRAB OPERATOR exam performed by resident physician she had some CMT as well as significant right adnexal tenderness. ED course. We will do a pelvic ultrasound to look for tubo-ovarian abscess. We will also get a CT scan to look at the remainder of the abdomen and sure there is no anatomic abnormalities. We will do lab testing and blood cultures. A likely this patient will be restarted on IV antibiotics and readmitted to the hospital. CT scan revealed some swelling on the right side. Ultrasound was suspicious for tubo-ovarian abscess. We contacted [facility]. They felt that with CMT she required inpatient antibiotics. Patient was started on Zosyn. She will be admitted to [facility] service for additional evaluation and management. I agree with resident physician assessment and plan.
[2018-10-05 13:55] LABS: Bilirubin,Urine Negative (Negative); Blood,Urine Negative (Negative); Color,Urine Yellow (Yellow); Glucose,Urine (UA) Normal (Normal); Ketones,Urine Negative (Negative); Leukocyte Esterase,Urine Negative (Negative); Nitrite,Urine Negative (Negative); PH,Urine 7.5 pH Units (5.0-8.0); Protein,Urine Negative (Neg-Trace); Specific Gravity,Urine 1.013 (1.010-1.025); Urobilinogen,Urine Normal (Normal)
[2018-10-05 13:57] LABS: Bacteria,Urine None Seen per hpf (None-Few); Hyaline Casts,Urine Few per lpf (None-Few); Squamous Epithelial Cell,Urine Many per lpf (None-Few)
[2018-10-05 13:58] LABS: Clarity,Urine Hazy (Clear)
[2018-10-05 14:09] LABS: Mucus,Urine Few (Few)
[2018-10-05 14:11] LABS: Renal Epithelial Cells,Urine Few per hpf (None-Few)
[2018-10-05 14:12] LABS: Amorphous Sediment,Urine Moderate (Few)
[2018-10-05] MEDS ORDERED: *HR* HYDROmorphone (PF) 1 MG/ML SYRINGE IVP ONE (18:17)
[2018-10-05] MEDS ORDERED: Piperacillin/Tazobactam 3.375 GM in 0.9 % Sodium Chloride Mini Bag 100 ML IVPB ONE (19:14)
[2018-10-05] MEDS ORDERED: Ibuprofen 600 MG TABLET PO PRN (21:34)
[2018-10-05] MEDS ORDERED: Acetaminophen 325 MG TABLET PO PRN (21:50)
[2018-10-05] MEDS ORDERED: Ondansetron 4 MG/2 ML VIAL IVP PRN (22:00)
[2018-10-05] MEDS: Gabapentin 300 MG CAPSULE PO PRN (22:25)
[2018-10-06] MEDS ORDERED: Piperacillin/Tazobactam 3.375 GM in 0.9 % Sodium Chloride Mini Bag 100 ML IVPB SCH
[2018-10-06] MEDS ORDERED: Ondansetron 4 MG/2 ML VIAL IVP SCH
[2018-10-06] MEDS ORDERED: 0.9 % Sodium Chloride 250 ML ONE (00:48)
--- NOTE | 2018-10-06 06:34 | OB/GYN History & Physical ---
Date of Encounter: 10/06/18 Time of Encounter: 06:34 Assessment and Plan (1) Abdominal pain Current visit: Yes Status: Acute 23-year-old G0, Abdominal pain, History of Chlamydia infection, Possible TOA/PID VSS HEENT: normaocephalic, full ROM CHEST: normal resp effort ABD: non-tender, soft Plan: When I examined the patient this morning, she was fast sleep. Immediately I woke her up, she was requesting narcotics. Her physical exam does not show any evidence of an acute abdominal process at this time. I reviewed the ultrasound report and the recommendation was to repeat the ultrasound in 6-12 weeks. I want to draw labs this morning and if her labs are normal, she will be discharged with Augmentin. She refuses to take Motrin or Tylenol. She is scheduled to see Dr. Hilario in 2 weeks. Qualifiers: Abdominal location: right lower quadrant Qualified Code(s): R10.31 - Right lower quadrant pain History of Present Illness HPI: Ms. Nunez is a 23 year old female G0 who was admitted to the floor for observation after she presented to the emergency room for abdominal pain. She reports that she's been having this pain for the past 4 weeks. She reports that her pain is localized more on the right. She had an ultrasound that was done which showed a left complex ovarian cyst and a right hydrosalpinx. She was recently treated for chlamydia and is scheduled to be seen in the office with Dr Hilario. When she presented to the emergency room she was tachycardic and her lactic acid was elevated. Her AST was elevated beside that all the labs were normal. Her vitals were also normal. I admitted her for observation while I started her on Zosyn. Past Med Surg Social Fam HX - Past Medical History Medical history: other Additional medical history: Restless leg syndome, [place] Left knee pain Psychiatric history: no psych history, depression - Past Surgical History Surgical History: no surgical history - Social History Smoking Status: Current every day smoker Smokeless Tobacco Status: No Alcohol use: occasionally Drug use: none Obstetrical History - Pregnancies : 0 Medications and Allergies Gabapentin [Neurontin] 600 mg PO BID PRN 08/24/17 [History] Tramadol HCl [Ultram] 50 - 100 mg PO TID PRN 08/24/17 [History] Doxycycline 100 mg PO BID #20 capsule 09/21/18 [Rx] metroNIDAZOLE [Flagyl] 500 mg PO BID #20 tablet 09/21/18 [Rx] Amoxicillin/Potassium Clav [Augmentin Xr 1,000-62.5 Tab] 2 each PO BID 14 Days tab.er.12h 10/06/18 [Rx] Oxycodone HCl 5 mg PO Q8-10H PRN 5 Days #15 tablet 10/06/18 [Rx] Allergy/AdvReac Type Severity Reaction Status Date / Time pamabrom [From Midol] Allergy Rash Verified 07/20/18 08:17 aspirin AdvReac Gastrointestinal Verified 09/17/18 10:08 Upset ibuprofen AdvReac Nausea Verified 07/20/18 08:17 naproxen [From Aleve] AdvReac Nausea Verified 07/20/18 08:17 NSAIDS (Non-Steroidal AdvReac Gastrointestinal Verified 07/20/18 08:17 Anti-Inflamma Upset Review of System OB All systems PM: reviewed and no additional remarkable complaints except as stated Exam - Vital Signs Vital signs: Initial Vital Signs Temp Pulse Resp BP Pulse Ox 98.0 F 93 14 111/68 100 10/05/18 12:18 10/05/18 12:18 10/05/18 12:18 10/05/18 12:18 10/05/18 12:18 - Constitutional Constitutional: no acute distress Results Result Diagrams: 10/06/18 06:47 10/06/18 06:47 Abnormal lab results RBC 5.38 M/mcL (3.82-4.97) H 10/05/18 13:15 Hgb 16.0 g/dL (11.5-15.4) H 10/05/18 13:15 Hct 49.4 % (35.3-44.9) H 10/05/18 13:15 RDW 15.1 % (11.5-14.5) H 10/05/18 13:15 BUN 4 mg/dL (6-20) L 10/05/18 13:15 Glucose 107 mg/dL (70-105) H 10/05/18 13:15 Lactic Acid 2.6 mmol/L (0.5-2.2) H 10/05/18 13:15 Calcium 10.6 mg/dL (8.6-10.3) H 10/05/18 13:15 AST 44 Units/L (13-39) H 10/05/18 13:15 Urine Clarity Hazy (Clear) A 10/05/18 13:50 Ur Squamous Epith Cells Many per lpf (None-Few) H 10/05/18 13:50 Amorphous Sediment Moderate (Few) H 10/05/18 13:50 All other labs normal.
[2018-10-06 07:00] LABS: Basophils % 0.5 %; Eosinophils # 0.3 K/mcL (0.0-0.6); Eosinophils % 4.7 %; Hematocrit 42.1 % (35.3-44.9); Immature Granulocytes % 0.2 % (0-4); Lymphocytes # 2.9 K/mcL (0.6-4.6); Lymphocytes % 45.3 %; Mean Corpuscular HGB Conc 32.1 g/dL (31.6-35.5); Mean Corpuscular Hemoglobin 29.6 pg (28.0-33.3); Mean Corpuscular Volume 92.3 fL (83.0-100.0); Mean Platelet Volume 10.2 fL (9.4-12.4); Monocytes # 0.5 K/mcL (0.0-1.3); Monocytes % 8.2 %; Neutrophils # 2.7 K/mcL (1.6-8.9); Platelet Count 270 K/mcL (140-400); Red Blood Count 4.56 M/mcL (3.82-4.97); Red Cell Distribution Width 15.3 % (11.5-14.5); Segmented Neutrophils % 41.1 %; White Blood Count 6.5 K/mcL (4.3-11.1)
[2018-10-06 07:04] LABS: Hemoglobin 13.5 g/dL (11.5-15.4)
[2018-10-06 07:19] LABS: Alanine Aminotransferase 10 Units/L (7-52); Albumin 3.6 g/dL (3.5-5.7); Albumin/Globulin Ratio 1.7 (1.1-2.2); Alkaline Phosphatase 51 Units/L (34-104); Aspartate Amino Transferase 22 Units/L (13-39); BUN/Creatinine Ratio 9 (6-26); Bilirubin,Total 0.4 mg/dL (0.3-1.0); Blood Urea Nitrogen 5 mg/dL (6-20); Calcium 8.7 mg/dL (8.6-10.3); Carbon Dioxide 21 mEq/L (23-29); Chloride 112 mEq/L (98-107); Globulin 2.1 g/dL (2.4-3.5); Glucose 93 mg/dL (70-105); Osmolality,Calculated 291 (280-300); Potassium 3.7 mEq/L (3.5-5.1); Sodium 142 mEq/L (136-145); Total Protein 5.7 g/dL (6.4-8.9); eGFR For African Americans > 60 (> 60); eGFR For Non-African Americans > 60 (> 60)
[2018-10-06] MEDS: Gabapentin 300 MG CAPSULE PO PRN (07:22)
[2018-10-06] MEDS ORDERED: Azithromycin 250 MG TABLET PO ONE (08:02)
[2018-10-06 08:18] VITALS: BP 112/74
== END 2018-10-06 09:52 | disposition home or self-care (01) ==
LOC: EMEROOARM 12:17 → INTOOBSV 19:24 → 1NENUOBS 19:24
PROVIDERS: ADMIT Student in an Organized Health Care Education/Training Program; ATTEND Student in an Organized Health Care Education/Training Program